=== PATIENT | male | born 2000 | race Hispanic/Latino ===

== ENCOUNTER 2022-04-10 10:16 | Emergency (ER) | payer MEDICAID, OTHER ==
[~2022-04-10] VITALS: Ht 177.8 cm; Wt 72.6 kg
[2022-04-10 10:20] VITALS: BP 127/58
[2022-04-10] MEDS ORDERED: TETRACAINE HCL 0.5% 4 ML OPHTH SOLN OP SCH (10:30)
[2022-04-10] MEDS ORDERED: NA BORATE/BORIC AC/H2O/NACL 120 ML OPHTH IRRIG SOLN OP SCH (10:30)
[2022-04-10] MEDS ORDERED: FLUORESCEIN SODIUM 1 STRIP STRIP OP SCH (10:30)
[2022-04-10] MEDS ORDERED: ERYT1OIN7 OP (12:28)
[2022-04-10] MEDS ORDERED: ERYTHROMYCIN BASE 0.5% OPHTH OINT 1 GM TUBE OU SCH (12:30)
== END 2022-04-10 12:49 | disposition home or self-care (01) ==
LOC: EDH 10:16
DX: S05.01XA Injury of conjunctiva and corneal abrasion without foreign body, right eye, initial encounter (principal); X58.XXXA Exposure to other specified factors, initial encounter; Y93.89 Activity, other specified; Y92.89 Other specified places as the place of occurrence of the external cause; Y99.8 Other external cause status